=== PATIENT | female | born 1995 ===

== ENCOUNTER 2017-01-09 09:32 | Emergency (ER) | payer MEDICAID ==
[2017-01-09 09:41] VITALS: BMI 30.9
[2017-01-09 09:42] VITALS: BP 122/77; PULSE 73; RESP 18; TEMP 98; O2SAT 98
--- NOTE | 2017-01-09 09:59 | C.PDOC ---
History Of Present Illness CO "BALL" L VAGINA X UNK DURATION. PS FIRST NOTICED IT YEST. PAINFUL TO TOUCH. DENIES OTHER ASSOC SX. PS SHAVES PUBIC HAIR BUT HAS NOT "IN A WHILE" EXAM NAD +SUBCUT NODULE BETWEEN L LABIA AND RECTAL AREA NOT PERIANAL. LOCAL TEND. NO GROSS SWELLING SKIN NO ERYTHEMA, LESIONS, NO GROIN NODES MDM POSSIBLE EARLY BARTHOLIN CYST NO INDICATION FOR I&D @ THIS TIME. ABX, TOMI OBGYN Time Seen by Provider: 01/09/17 09:54 Chief Complaint (Nursing): Abnormal Skin Integrity History Per: Patient History/Exam Limitations: no limitations Onset/Duration Of Symptoms: Days (1 day) Current Symptoms Are (Timing): Still Present Past Medical History Reviewed: Historical Data, Nursing Documentation, Vital Signs Vital Signs: Last Vital Signs Temp 98 F 01/09/17 09:42 Pulse 73 01/09/17 09:42 Resp 18 01/09/17 09:42 BP 122/77 01/09/17 09:42 Pulse Ox 98 01/09/17 10:29 Family History: States: No Known Family Hx Review Of Systems Except As Marked, All Systems Reviewed And Found Negative. Constitutional: Negative for: Fever Genitourinary: Positive for: Other ((+) "ball" to left of vagina.). Negative for: Dysuria, Vaginal Discharge Physical Exam - Physical Exam Appears: Non-toxic, No Acute Distress Skin: Warm, Dry, No Rash Head: Atraumatic, Normacephalic Oral Mucosa: Moist Respiratory: Normal Breath Sounds Gastrointestinal/Abdominal: Normal Exam, Soft, No Tenderness, No Guarding, No Rebound Pelvic: Other ((+) Subacute nodule between left labia and rectal area. Not perianal. Local tenderness. No gross swelling. No erythema. No lesions. No groin nodes.) Extremity: Normal ROM, No Swelling Neurological/Psych: Oriented x3, Normal Speech, Normal Motor, Normal Sensation ED Course And Treatment O2 Sat by Pulse Oximetry: 98 (RA) Pulse Ox Interpretation: Normal Medical Decision Making Medical Decision Making: NOTE: POSSIBLE EARLY BARTHOLIN CYST NO INDICATION FOR I&D @ THIS TIME. ABX, TOMI OBGYN Disposition Counseled Patient/Family Regarding: Diagnosis, Need For Followup, Rx Given - Disposition Referrals: [facility] [Outside] [facility] [Outside] Disposition: HOME/ ROUTINE Disposition Time: 10:26 Condition: GOOD Additional Instructions: TAKE MOTRIN/TYLENOL NEEDED DIRECTED. YOU HAVE POSSIBLE EARLY BARTHOLIN CYST. Prescriptions: Amoxicillin/Clavulanate [Augmentin 875 MG-125 MG] 1 tab PO BID #[id number] tab Instructions: Bartholin Cyst (ED) Forms: [facility] (Malaysian), Work Excuse - Clinical Impression Clinical Impression: Abscess - Scribe Statement The provider has reviewed the documentation as recorded by the Danica Porter Provider Attestation: All medical record entries made by the Danica were at my direction and personally dictated by me. I have reviewed the chart and agree that the record accurately reflects my personal performance of the history, physical exam, medical decision making, and the department course for this patient. I have also personally directed, reviewed, and agree with the discharge instructions and disposition.
== END 2017-01-09 10:33 | disposition home or self-care (01) ==
LOC: C.ER 09:32
DX: N76.4 Abscess of vulva (principal)